=== PATIENT | female | born 1970 | race Caucasian/White ===

== ENCOUNTER 2016-11-10 22:49 | Emergency (ER) | payer OTHER | END 2016-11-10 23:50 | disposition home or self-care (01) | LOC: D.ER 22:49 | DX: S86.911A Strain of unspecified muscle(s) and tendon(s) at lower leg level, right leg, initial encounter (principal); X58.XXXA Exposure to other specified factors, initial encounter; Y93.89 Activity, other specified; Y92.89 Other specified places as the place of occurrence of the external cause; M25.461 Effusion, right knee ==